=== PATIENT | male | born 1940 | race Two or more races ===

== ENCOUNTER → 2025-03-27 | Outpatient (CLI) | payer OTHER ==
[~2025-03-27] VITALS: Ht 165.1 cm; Wt 79.8 kg
[~2025-03-27] MED LIST: ALBUAER3 IN; AMLO1TAB23 PO; ATOR10TA PO; CHOL1TAB28 PO; CLON0.1T PO; DIPH25CA66 PO; DOXA2TAB84 PO; FERR325T20 PO; FURO1TAB31 PO; GABA-1250 PO; METO-6 PO; TRAM50TA2 PO
[2025-03-27 10:26] LABS: Hematocrit 36.8 % (41.0-53.0); Hemoglobin 12.6 g/dL (13.5-17.5); Mean Corpuscular Hemoglobin 33.1 pg (28.0-32.0); Mean Corpuscular Volume 96.7 fL (80.0-100.0); Nucleated Red Blood Cells % 0.0 %
[2025-03-27 10:35] LABS: Urine Protein, UAD 2+ (Negative); Urine WBC Clumps PRESENT /hpf (None Seen)
[2025-03-27 10:41] LABS: INR 1.02 (0.9-1.15); Partial Thromboplastin Time 27.3 SEC (24.5-34.5); Prothrombin Time 10.8 sec (9.3-11.8)
[2025-03-27 10:48] LABS: Alanine Aminotransferase 39 U/L (7-40); Albumin 4.5 g/dL (3.2-4.8); Anion Gap 12 (5-15); BUN/Creatinine Ratio 9.6 (10.0-20.0); Bilirubin, Total 0.4 mg/dL (0.2-1.0); Calcium 9.6 mg/dL (8.7-10.4); Carbon Dioxide 28 mmol/L (20-31); Chloride 98 mmol/L (98-107); Potassium 4.7 mmol/L (3.5-5.1); Sodium 138 mmol/L (136-145); Total Protein 7.7 g/dL (5.7-8.2)
[2025-03-27 11:04] LABS: Alkaline Phosphatase 160 U/L (46-116); Blood Urea Nitrogen 45 mg/dL (9-23); Glucose 118 mg/dL (74-106)
== END | disposition home or self-care (01) ==
LOC: LAB 10:11 → EDSTATUS 04-02 10:15
PROVIDERS: ATTEND Surgery
DX: Z01.812 Encounter for preprocedural laboratory examination (principal); N18.6 End stage renal disease
CPT/HCPCS: 36415; 80053; 81001; 85025; 85610; 85730